=== PATIENT | female | born 1985 | race Caucasian/White ===

== ENCOUNTER 2017-02-25 06:53 | Inpatient (IN) | payer OTHER ==
[2017-02-25] MEDS ORDERED: ceFAZolin IV 2 gm in Dextrose 1 GM/50 ML BAG IVPB ONE (06:56)
[2017-02-25] MEDS ORDERED: Sodium Citrate/Citric Acid 15 ml Sol PO ONE (06:56)
[2017-02-25] MEDS ORDERED: Lactated Ringer's 1,000 ML IV SCH (07:00)
--- NOTE | 2017-02-25 07:09 | OBADHP ---
Datetime: 02/25/2017 06:52 Admit Comment, IP Provider: chief complaint-term ; previous csection HPI 32 y/o at 39.1 wga, wth hx of 2 previous csection here for scheduled repeat csection Patient denies nausea, vomiting, vaginl bleeding, loss of fluid course uncomplicated PMH denies PSH denies OBGYN HX ; cscetionx2 Social hx denies tobacco,alcohol or illicit drug use Exam see exam section A/P 32 y/o at 39.1 wga here for scheduled csection -admit -see orders Pelvic Type - PN: Adequate Extremities - PN: Normal Abdomen - PN: Normal Back - PN: Normal Lungs - PN: Normal Heart - PN: Normal Neurologic - PN: Normal General - PN: Normal Contraction Comments Provider: occ IP Hx Assessment: The History has been Reviewed and is Current Vital Signs Provider: Reviewed; Within Normal Limits IP Chief Complaint: Scheduled Section FHR Category Provider Fetus A: Category I Genitourinary Exam: Normal DTRs - PN: Normal EGA AdmitDate IP: 39.1 IP Adm Impression: Term, intrauterine IP Admit Plan: Admit to unit; Initiate Section protocol
[2017-02-25] MEDS ORDERED: Oxytocin 20 units in LR 2,000 ML IV ONE (07:19)
[2017-02-25] MEDS ORDERED: Phenylephrine 10 mg/ml Inj ONE (07:22)
[2017-02-25 07:37] LABS: ALBUMIN 2.9 g/dL (3.5-5.0)
[2017-02-25] MEDS ORDERED: cefOXitin IV 2 gm in Dextrose 2 GM/50 ML BAG IVPB ONE (07:38)
[2017-02-25 07:39] LABS: GFR AFRICAN-AMERICAN > 60; GFR NON-AFRICAN AMERICAN > 60
[2017-02-25 07:40] LABS: ALB/GLOB RATIO 0.9 (1.0-2.1); ALT/SGPT 96 U/L (9-52); AST/SGOT 81 U/L (14-36); BLOOD UREA NITROGEN 7 mg/dL (7-17); CALCIUM 8.8 mg/dl (8.6-10.4)
[2017-02-25 07:46] LABS: BASO % 0.4 % (0.0-2.0); EOS % 0.6 % (0.0-4.0); HEMOGLOBIN 11.6 g/dL (11.0-16.0); LYMPH # 2.1 K/uL (1.0-4.3); LYMPH % 25.3 % (20.0-40.0); MEAN CELL VOLUME 84.3 fL (81.0-99.0); MEAN CORPUSCULAR HEMOGLOBIN 28.5 pg (27.0-31.0); MEAN CORPUSCULAR HGB CONC 33.8 g/dL (33.0-37.0); MEAN PLATELET VOLUME 9.6 fL (7.2-11.7); MONO # 0.6 K/uL (0.0-0.8); MONO % 7.9 % (0.0-10.0); NEUT # 5.4 K/uL (1.8-7.0); NEUT % 65.8 % (50.0-75.0); RBC 4.06 Mil/uL (3.80-5.20); WHITE BLOOD COUNT 8.2 K/uL (4.8-10.8)
[2017-02-25] MEDS ORDERED: Morphine 1 mg/ml preservative-free Inj(Duramorph) ONE (07:57)
[2017-02-25 08:18] LABS: SQUAMOUS EPITHIAL 7 /hpf (0-5); URINE BACTERIA OCC (<OCC); URINE BILIRUBIN NEGATIVE (NEGATIVE); URINE BLOOD NEGATIVE (NEGATIVE); URINE CLARITY Hazy (Clear); URINE COLOR Amber (YELLOW); URINE GLUCOSE (UA) NORMAL (Normal); URINE LEUKOCYTE ESTERASE 3+ Leu/uL (Negative); URINE NITRATE NEGATIVE (NEGATIVE); URINE PROTEIN 1+ mg/dL (NEGATIVE); URINE UROBILINOGEN NORMAL mg/dL (0.2-1.0)
[2017-02-25] MEDS ORDERED: Oxytocin 10 Units/ml Inj ONE (09:05)
--- NOTE | 2017-02-25 09:32 | OBDS ---
DELIVERY PERSONNEL Delivery Doctor: Shey Blair MD Scrub Nurse: Theresa Zavala Psychiatry Teacher: Lula Vaughn RN Anesthesiologist: shahbaz MATERNAL INFORMATION Delivery Anesthesia: Spinal Medications in Delivery: pitocin 20 Maternal Complications: None Provider Comments: baby delivee i n patricia. end clean unvcomplicated c/s LABOR SUMMARY EDC: 03/03/2017 00:00 No. Babies in Womb: 1 Attempted: No Labor Anesthesia: None LABOR INFORMATION Oxytocin: N/A Group B Beta Strep: Positive Antibiotics # of Doses: 1 Antibiotics Time of Last Dose: 730 Steroids Given: None Reason Steroids Not Administered: Not Applicable MEMBRANES Membranes Rupture Method: Artificial Rupture of Membranes: 02/25/2017 09:01 Length of Rupture (hrs): 0.02 Amniotic Fluid Color: Clear Amniotic Fluid Amount: Moderate Amniotic Fluid Odor: Normal STAGES OF LABOR Stage 3 hrs: 0 Stage 3 min: 1 VAGINAL DELIVERY Episiotomy: None Laceration Extension: N/A Laceration Type: None CSECTION DELIVERY Primary Indication: Repeat Elective Secondary Indication: N/A CSection Urgency: Elective CSection Incidence: Repeat Labor: N/A Elective: Elective CSection Incision: Lower Uterine Transverse BABY A INFORMATION Delivery Date/Time: 02/25/2017 09:02 Method of Delivery: Born in Route : No : N/A Forceps: N/A Vacuum Extraction: N/A Shoulder Dystocia : No SHOULDER DYSTOCIA BABY A Delivery Date/Time: 02/25/2017 09:02 PRESENTATION/POSITION BABY A Presentation: Cephalic Cephalic Presentation: Vertex Vertex Position: Left Occipital Anterior Breech Presentation: N/A PLACENTA INFORMATION BABY A Placenta Delivery Time : 02/25/2017 09:03 Placenta Method of Delivery: Manual Removal Placenta Status: Delivered SCORES BABY A Heart Rate 1 min: >100 bpm Resp Effort 1 min: Good Cry Reflex Irritability 1 min: Cough or Sneeze or Pulls Away Muscle Tone 1 min: Active Motion Color 1 min: Body [place], Extremities Blue SCORE 1 MIN: 9 Heart Rate 5 min: >100 bpm Resp Effort 5 min: Good Cry Reflex Irritability 5 min: Cough or Sneeze or Pulls Away Muscle Tone 5 min: Active Motion Color 5 min: Body [place], Extremities Blue SCORE 5 MIN: 9 INFANT INFORMATION BABY A Gestational Age at Delivery: 39.0 Gestational Status: Term Outcome : Liveborn Condition : Stable Infant Sex: Male IDENTIFICATION/MEDS BABY A ID Band Number: [id number] ID Band Location: Left Leg; Left Arm Sensor Applied: Yes Sensor Number: [id number] Sensor Location : Cord Clamp WEIGHT/LENGTH BABY A Infant Birthweight (gms): 3575 Infant Weight (lb): 7 Infant Weight (oz): 14 Length Inches: 18.25 Infant Length cms: 46.4 CORD INFORMATION BABY A No. Cord Vessels: 3 Nuchal Cord : Around Neck x1, Loose Cord Blood Taken: Yes Infant Suction: Mouth; Nose ASSESSMENT BABY A Infant Complications: None Physical Findings at Delivery: Within Normal Limits Respirations: Appears Normal Associate Professor Of Psychology/ALS Called : No Infant Care By: DR SHEEHAN Transferred To: Remains with Mother
[2017-02-25] MEDS: Prenatal Multivit/Folic Acid/Iron Tab PO SCH (11:18)
--- NOTE | 2017-02-25 11:57 | PCM.SURG1 ---
Surgeon's Initial Post Op Note - Surgeon's Notes Surgeon: dr tarango Glue Drier Operator: dr black Type of Anesthesia: Spinal Anesthesia Administered By: dr barajas Pre-Operative Diagnosis: 32 yr at 39eeks repeat section Operative Findings: see the op reoprt Post-Operative Diagnosis: same Operation Performed: repeat section Specimen/Specimens Removed: placente. cord blood Estimated Blood Loss: EBL {In ML}: 800 Blood Products Given: N/A Drains Used: No Drains Post-Op Condition: Good Date of Surgery/Procedure: 02/25/17 Time of Surgery/Procedure: 12:00
[2017-02-25] MEDS: Simethicone 80 mg Chewtab PO SCH ×3 (13:15→22:04)
[2017-02-26] MEDS: Oxycodone/Acetaminophen 5/325 mg Tab PO PRN ×4 (04:40→17:21)
[2017-02-26 08:40] LABS: HEMOGLOBIN 10.7 g/dL (11.0-16.0); MEAN CELL VOLUME 85.1 fL (81.0-99.0); MEAN CORPUSCULAR HEMOGLOBIN 27.6 pg (27.0-31.0); MEAN CORPUSCULAR HGB CONC 32.5 g/dL (33.0-37.0); MEAN PLATELET VOLUME 9.5 fL (7.2-11.7); RBC 3.89 Mil/uL (3.80-5.20); RED CELL DISTRIBUTION WIDTH 15.1 % (11.5-14.5); WHITE BLOOD COUNT 10.5 K/uL (4.8-10.8)
[2017-02-26] MEDS: Prenatal Multivit/Folic Acid/Iron Tab PO SCH (09:34)
[2017-02-26] MEDS: Simethicone 80 mg Chewtab PO SCH ×4 (09:35→22:00)
[2017-02-27] MEDS: Oxycodone/Acetaminophen 5/325 mg Tab PO PRN ×4 (00:33→20:27)
--- NOTE | 2017-02-27 01:15 | OBPPN ---
Datetime: 02/26/2017 08:02 PP Pain Prov: Within normal limits PP Nausea Prov: Denies PP Flatus Prov: Yes PP Heart Prov: Normal PP Lungs Prov: Normal PP Abdomen/Uterus Prov: Normal PP Lochia Prov: Normal PP CVA Tenderness Prov: Normal PP Extremities Prov: Normal PP Impression Prov: Normal progression PP Plan Prov: Continue present management PP Progress Note Prov: S-patient denies any complaint.denies nausea, vomiting, headache, chest pain, shortness of breath, numbness or tingling in hands and feet O-VSS Afebrile Fundus firm and below umbilcus Incision clean,dry and intact extremities no calf tenderness A/P Patient s/p csection pod 1 doing well -continue routine post op care -encourage ambulation and po fluid intake Vital Signs Provider PP: Reviewed; Within Normal Limits
--- NOTE | 2017-02-27 07:35 | OBPPN ---
Datetime: 02/27/2017 07:32 PP Pain Prov: Within normal limits PP Pain Prov comment: well copntrolled PP Nausea Prov: Denies PP Flatus Prov: Yes PP Abdomen/Uterus Prov: Normal PP Lochia Prov: Normal PP Extremities Prov: Normal PP Comments Phys Exam Prov: fuduis below umblicus incision clean and dry mild edema,no calf ten PP Impression Prov: Normal progression PP Plan Prov: Continue present management PP Progress Note Prov: pt was seen at bed side, pain under control, no n/v, tolerating deit, voiding ,min lochia, flatus+ podz#2 s/p c/s cont post op care cont pain management encourage ambulation Vital Signs Provider PP: Reviewed; Within Normal Limits
[2017-02-27 08:02] VITALS: RESP 18
[2017-02-27] MEDS: Simethicone 80 mg Chewtab PO SCH ×5 (09:08→21:38)
[2017-02-27] MEDS: Prenatal Multivit/Folic Acid/Iron Tab PO SCH (09:08)
[2017-02-28] MEDS: Oxycodone/Acetaminophen 5/325 mg Tab PO PRN ×2 (01:34→06:10)
[2017-02-28 08:10] VITALS: BP 108/68; PULSE 95; TEMP 98.5; O2SAT 95
[2017-02-28] MEDS: Simethicone 80 mg Chewtab PO SCH (09:36)
[2017-02-28] MEDS: Prenatal Multivit/Folic Acid/Iron Tab PO SCH (09:36)
--- NOTE | 2017-02-28 19:55 | OBPPN ---
Datetime: 02/28/2017 19:43 PP Pain Prov: Within normal limits PP Nausea Prov: Denies PP Flatus Prov: Yes PP BM Prov: No PP Breasts Prov: Normal PP Heart Prov: Normal PP Lungs Prov: Normal PP Abdomen/Uterus Prov: Normal PP Lochia Prov: Normal PP Vulva/Perineum Prov: Not Done PP CVA Tenderness Prov: Normal PP Extremities Prov: Normal PP C/S Incision Prov: Normal PP Progress Prov: Normal PP Comments Phys Exam Prov: Abdomen: Soft. non distended. Incision with david - clean, dry and int act. Fundus firm, mobile, minimally tender, 1 FB below umbilicus. mild lochia rubra Extremiites: bilateral pedal edema (2+). no Calf enderness All other systems reviewed and are negative PP Impression Prov: Normal progression PP Plan Prov: Discharge PP Progress Note Prov: Patient seen and evaluated approximately 0745 hours: received in room 451, st anding up attending to . (+) flatus "passed more this morning and felt better"; (-) BM. Attemp ting to breastfeed - also bottlefeeding at this time. Denies nausea, vomiting, dizziness. (+) incisio nal pain: pain scale 8/10; after pain meds (percocet, followed by motrin aproximately 1 hours after) - 6/10 P.E.: as above. WD in NAD. Awake, alert, oriented to time, person and place. Pleasant and cooperat eveline Assessment: POD#3, 32 yo P3, S/P C/S #3; no BTL. Afebrile, vital signs stable. Returning GI and functions. Anemiaia noted; asymptomatic and hemodynamically stble. Undecided re: contraception. clin icallystable Plan: 1) discharge home 2) see full discharge instructions Vital Signs Provider PP: Reviewed; Within Normal Limits
--- NOTE | 2017-02-28 19:57 | OBDCSUM ---
Datetime: 02/28/2017 08:38 Discharged to, Provider: Home Follow up at, Provider: [facility] Disch Instr Activity: Normal activity Disch Instr Diet: Regular Discharge Diet restrict Prov: none Discharge Diagnosis, Provider: Term Delivered Discharge Time: 02/28/2017 10:49 Follow up in weeks, Provider: 03/04/17 Disch Referrals: None Disch Activity Restrictions: No exercising; No lifting; No sexual activity; Nothing in vagina - Inte rcourse, tampons, douche Discharge Diagnosis Prov Other: Status post repeat section Anemia Contraception counseling
== END 2017-02-28 14:04 | disposition home or self-care (01) | DRG 370 ==
LOC: C.4D 06:53 → C.4M 11:10
PROVIDERS: ADMIT Obstetrics & Gynecology; ATTEND Obstetrics & Gynecology
PROC: 10D00Z1 Extraction of Products of Conception, Low, Open Approach (ICD-10-PCS; principal; 2017-02-25)
DX: O34.211 Maternal care for low transverse scar from previous cesarean delivery (principal); O99.02 Anemia complicating childbirth; O99.824 Streptococcus B carrier state complicating childbirth; O69.81X0 Labor and delivery complicated by cord around neck, without compression, not applicable or unspecified; Z37.0 Single live birth; Z3A.39 39 weeks gestation of pregnancy